=== PATIENT | female | born 1940 ===

== ENCOUNTER 2021-04-10 08:00 | Day surgery (SDC) | payer OTHER ==
[~2021-04-10 08:00] MED LIST: ACID REDUCER20 M1 PO; CARBAMAZEPINE200 M3 PO; CARDURA8 MG PO; CARVED PO; FENOFIBRATE160 MG PO; GLUMETZA500 MG PO; NIFEDIPINE ER60 M1 PO; PANTOPRAZOLE SO40 M2 PO; PLAVIX75 MG PO; [UNRECOGNIZED DRUG - OTHER] PO
[2021-04-10] MEDS ORDERED: ACETAMINOPHEN500 M2 PO (12:32)
== END 2021-04-10 17:15 | disposition home or self-care (01) ==
LOC: CIR.AMB 08:00
PROVIDERS: ATTEND Surgery
DX: D12.9 Benign neoplasm of anus and anal canal (principal); K64.8 Other hemorrhoids; Z20.822 Contact with and (suspected) exposure to COVID-19